=== PATIENT | male | born 1995 | race Caucasian/White ===

== ENCOUNTER 2019-10-23 13:07 | Emergency (ER) | payer BC ==
[~2019-10-23] VITALS: Ht 175 cm; Wt 67.3 kg
[~2019-10-23 13:07] MED LIST: FEXO30TA17 PO; LNS30CCR PO; ONDA-42 PO
[2019-10-23] MEDS ORDERED: NS IV 1000 ML 1,000 ML IV ONE (13:10)
--- OUTSIDE RECORDS SUMMARY | 2019-10-23 13:12 | XMS REPORT | Continuity of Care Document ---
Demographics Preferred Language Unknown Marital Status Unknown Restoration Affiliation Unknown Race Unknown Ethnic Group Unknown Author Organization Unknown Address Unknown Phone Unavailable Allergies Active Description Code Type Severity Reaction Onset Reported/Identified Relationship to Patient Clinical Status Yes No Known Drug Allergies [id number] Drug Allergy Unknown N/A 03/15/2010 Medications There is no data. Problems Date Dx Coded Attending Type Code Diagnosis Diagnosed By 03/15/2010 Ot 847.0 03/15/2010 Ot 959.09 03/15/2010 Ot E000.8 03/15/2010 Ot E029.9 03/15/2010 Ot E812.1 01/25/2011 Ot 787.01 DWAYNE SEA WITH VOMITING 01/25/2011 Ot E930.4 ADV EFF TETRACYCLINE 04/13/2014 Ot 959.19 04/13/2014 Ot E000.8 04/13/2014 Ot E008.1 04/13/2014 Ot E928.8 04/13/2014 Ot 959.19 04/13/2014 Ot E000.8 04/13/2014 Ot E008.1 04/13/2014 Ot E928.8 04/13/2014 Ot 816.01 04/13/2014 Ot E000.8 04/13/2014 Ot E008.4 04/13/2014 Ot E928.8 04/13/2014 Ot 816.01 04/13/2014 Ot E000.8 04/13/2014 Ot E008.4 04/13/2014 Ot E917.9 12/06/2015 Ot 816.01 FX MID/PRX PHAL, HAND-CL 12/06/2015 Ot E000.8 OTH ER EXTERNAL CAUSE STATUS 12/06/2015 Ot E008.4 ACT IVITIES INVOLVING MARTIAL ARTS 12/06/2015 Ot E917.9 STR UCK BY OBJ/PERSON NEC Procedures There is no data. Results There is no data. Encounters ACCT No. Visit Date/Time Discharge Status Pt. Type Provider Facility Loc./Unit Complaint [id number] 01/25/2011 01:54:00 Document Registration [id number] 08/08/2010 08:10:00 Document Registration [id number] 03/15/2010 20:25:00 Document Registration [id number] 12/10/2009 12:16:00 Document Registration [id number] 04/30/2009 12:16:00 Document Registration [id number] 04/30/2009 09:56:00 Document Registration
[2019-10-23] MEDS ORDERED: ONDANSETRON 4 MG/2 ML (SDV) Z0FRAN IVP ONE (13:15)
[2019-10-23 13:29] LABS: BASOPHILS # (AUTO) 0.1 10^3/uL (0.0-0.1); BASOPHILS % (AUTO) 1 % (0-10); EOSINOPHILS # (AUTO) 0.1 10^3/uL (0.0-0.3); EOSINOPHILS % (AUTO) 1 % (0-10); HEMATOCRIT 42 % (40-54); HEMOGLOBIN 14.6 G/DL (13.3-17.7); LYMPHOCYTES # (AUTO) 2.5 X 10^3 (1.0-4.0); LYMPHOCYTES % (AUTO) 29 % (12-44); MEAN CORPUSCULAR HEMOGLOBIN 30 PG (25-34); MEAN CORPUSCULAR HGB CONC 35 G/DL (32-36); MEAN CORPUSCULAR VOLUME 86 FL (80-99); MEAN PLATELET VOLUME 10.1 FL (7.4-10.4); MONOCYTES # (AUTO) 0.7 X 10^3 (0.0-1.0); MONOCYTES % (AUTO) 9 % (0-12); NEUTROPHILS # (AUTO) 5.2 X 10^3 (1.8-7.8); NEUTROPHILS % (AUTO) 61 % (42-75); PLATELET COUNT 319 10^3/uL (130-400); RED CELL DISTRIBUTION WIDTH 12.3 % (10.0-14.5); WHITE BLOOD COUNT 8.6 10^3/uL (4.3-11.0)
[2019-10-23] MEDS ORDERED: KETOROLAC 30 MG/ML VIAL IVP ONE (13:30)
[2019-10-23 13:39] LABS: ALBUMIN 4.9 GM/DL (3.2-4.5); CHLORIDE 103 MMOL/L (98-107); POTASSIUM 3.6 MMOL/L (3.6-5.0); SODIUM 141 MMOL/L (135-145)
[2019-10-23 13:41] LABS: CALCIUM 9.7 MG/DL (8.5-10.1)
[2019-10-23 13:42] LABS: GLUCOSE 115 MG/DL (70-105); TOTAL PROTEIN 7.5 GM/DL (6.4-8.2)
[2019-10-23 13:43] LABS: CARBON DIOXIDE 25 MMOL/L (21-32)
[2019-10-23 13:44] LABS: BILIRUBIN,TOTAL 0.8 MG/DL (0.1-1.0)
[2019-10-23 13:45] LABS: ALKALINE PHOSPHATASE 63 U/L (40-136); CREATININE SERUM 1.08 MG/DL (0.60-1.30); GFR ESTIMATED > 60
[2019-10-23 13:46] LABS: BUN/CREATININE RATIO 12
[2019-10-23 13:48] LABS: ALANINE AMINOTRANSFERASE 16 U/L (0-55)
[2019-10-23 14:40] LABS: BILIRUBIN,URINE NEGATIVE (NEGATIVE); CLARITY,URINE CLEAR; COLOR,URINE YELLOW; GLUCOSE, URINE (UA) NEGATIVE (NEGATIVE); KETONES,URINE 3+ (NEGATIVE); LEUKOCYTE ESTERASE ,URINE NEGATIVE (NEGATIVE); NITRITE,URINE NEGATIVE (NEGATIVE); PROTEIN,URINE 1+ (NEGATIVE)
[2019-10-23 14:47] LABS: BACTERIA,URINE NEGATIVE /HPF; CALCIUM OXALATE CRYSTALS,UR MODERATE /LPF
[2019-10-23 14:48] LABS: RBC,URINE RARE /HPF
[2019-10-23] MEDS ORDERED: LACTATED RINGERS 1,000 ML IV ONE (14:53)
--- NOTE | 2019-10-23 14:59 | ED Abdominal Pain ---
General Chief Complaint: Abdominal/GI Problems Stated Complaint: LOWER R BACK PAIN/VOMITING Nursing Triage Note: PT PRESENTS TO ED WITH COMPLAINTS OF R LOWER FLANK/BACK PAIN AND N/V STARTING APROX 2 HOURS AGO. PT ALSO REPORTS DIFFICULTY WITH URINATION STARTING 2 HOURS AGO. Sepsis Screen: No Definite Risk Source of Information: Patient Exam Limitations: No Limitations History of Present Illness Date Seen by Provider: October 23, 2019 Time Seen by Provider: 13:11 Initial Comments This 24-year-old young man presents to the emergency room with abrupt onset of right flank pain and vomiting that started around noon. He denies any fever or other acute symptoms. He is able to produce a tiny amount of dark urine in the exam room. Allergies and Home Medications Allergies Coded Allergies: No Known Drug Allergies (Unverified , 03/15/10) Home Medications Fexofenadine Hcl 30 Mg Tablet, 1 TAB PO DAILY, (Reported) Lansoprazole 30 Mg Cap, 30 MG PO DAILY, (Reported) Ondansetron 4 Mg Tab.rapdis, 4 MG SL Q4H PRN for NAUSEA/VOMITING Prescribed by: NEIL PURCELL on 10/23/19 1608 Ondansetron Hcl 4 Mg Tab, 4 MG PO Q4H PRN Prescribed by: JAZMIN BERRY on 01/25/11 0313 Patient Home Medication List Home Medication List Reviewed: Yes Review of Systems Review of Systems Constitutional: no symptoms reported EENTM: No Symptoms Reported Respiratory: No Symptoms Reported Cardiovascular: No Symptoms Reported Gastrointestinal: See HPI Genitourinary: See HPI Musculoskeletal: no symptoms reported Skin: no symptoms reported Psychiatric/Neurological: No Symptoms Reported Endocrine: No Symptoms Reported Hematologic/Lymphatic: No Symptoms Reported Past Hlykbov-Qzqqna-Alkmdl Hx Past Med/Social Hx: Reviewed Nursing Past Med/Soc Hx Patient Social History Alcohol Use: Denies Use Recreational Drug Use: No Smoking Status: Never a Smoker Recent Foreign Travel: No Contact w/Someone Who Travel: No Recent Infectious Disease Expo: No Recent Hopitalizations: No Physical Abuse: No Sexual Abuse: No Mistreated: No Fear: No Seasonal Allergies Seasonal Allergies: No Past Medical History Surgeries: Yes (THAI FUNDOPLICATION) Respiratory: No Cardiac: No Neurological: No Genitourinary: No Gastrointestinal: No Musculoskeletal: No Endocrine: No HEENT: No Cancer: No Psychosocial: No Integumentary: No Blood Disorders: No Physical Exam Vital Signs Vital Signs - First Documented 10/23/19 13:22 Temp 36.3 Pulse 62 Resp 18 B/P (MAP) 135/95 (108) Pulse Ox 100 Capillary Refill : Less Than 3 Seconds Height/Weight/BMI Height: '" Weight: lbs. oz. kg; 21.00 BMI Method:Stated General Appearance: WD/WN, moderate distress HEENT: normal ENT inspection Neck: normal inspection Respiratory: lungs clear, normal breath sounds, no respiratory distress Cardiovascular: regular rate, rhythm, no edema, no murmur Gastrointestinal: normal bowel sounds, non tender, soft Extremities: normal inspection, no pedal edema Neurologic/Psychiatric: driller hand II-XII nml as tested, no motor/sensory deficits, alert, normal mood/affect, oriented x 3 Skin: normal color, warm/dry Progress/Results/Core Measures Results/Orders Lab Results Laboratory Tests Test 10/23/19 13:10 10/23/19 13:18 Range/Units Urine Color YELLOW Urine Clarity CLEAR Urine pH 6.0 5-9 Urine Specific [place] >=1.030 1.016-1.022 Urine Protein 1+ H NEGATIVE Urine Glucose (UA) NEGATIVE NEGATIVE Urine Ketones 3+ H NEGATIVE Urine Nitrite NEGATIVE NEGATIVE Urine Bilirubin NEGATIVE NEGATIVE Urine Urobilinogen 1.0 < = 1.0 MG/DL Urine Leukocyte Esterase NEGATIVE NEGATIVE Urine RBC (Auto) 1+ H NEGATIVE Urine RBC RARE /HPF Urine WBC NONE /HPF Urine Squamous Epithelial Cells NONE /HPF Urine Crystals PRESENT H /LPF Urine Calcium Oxalate Crystals MODERATE H /LPF Urine Bacteria NEGATIVE /HPF Urine Casts NONE /LPF Urine Mucus SMALL H /LPF Urine Culture Indicated NO White Blood Count 8.6 4.3-11.0 10^3/uL Red Blood Count 4.91 4.35-5.85 10^6/uL Hemoglobin 14.6 13.3-17.7 G/DL Hematocrit 42 40-54 % Mean Corpuscular Volume 86 80-99 FL Mean Corpuscular Hemoglobin 30 25-34 PG Mean Corpuscular Hemoglobin Concent 35 32-36 G/DL Red Cell Distribution Width 12.3 10.0-14.5 % Platelet Count 319 130-400 10^3/uL Mean Platelet Volume 10.1 7.4-10.4 FL Neutrophils (%) (Auto) 61 42-75 % Lymphocytes (%) (Auto) 29 12-44 % Monocytes (%) (Auto) 9 0-12 % Eosinophils (%) (Auto) 1 0-10 % Basophils (%) (Auto) 1 0-10 % Neutrophils # (Auto) 5.2 1.8-7.8 X 10^3 Lymphocytes # (Auto) 2.5 1.0-4.0 X 10^3 Monocytes # (Auto) 0.7 0.0-1.0 X 10^3 Eosinophils # (Auto) 0.1 0.0-0.3 10^3/uL Basophils # (Auto) 0.1 0.0-0.1 10^3/uL Sodium Level 141 135-145 MMOL/L Potassium Level 3.6 3.6-5.0 MMOL/L Chloride Level 103 98-107 MMOL/L Carbon Dioxide Level 25 21-32 MMOL/L Anion Gap 13 5-14 MMOL/L Blood Urea Nitrogen 13 7-18 MG/DL Creatinine 1.08 0.60-1.30 MG/DL Estimat Glomerular Filtration Rate > 60 BUN/Creatinine Ratio 12 Glucose Level 115 H 70-105 MG/DL Calcium Level 9.7 8.5-10.1 MG/DL Corrected Calcium 8.5-10.1 MG/DL Total Bilirubin 0.8 0.1-1.0 MG/DL Aspartate Amino Transf (AST/SGOT) 15 5-34 U/L Alanine Aminotransferase (ALT/SGPT) 16 0-55 U/L Alkaline Phosphatase 63 40-136 U/L Total Protein 7.5 6.4-8.2 GM/DL Albumin 4.9 H 3.2-4.5 GM/DL My Orders Orders - NEIL EDDY MD Cbc With Automated Diff (10/23/19 13:10) Comprehensive Metabolic Panel (10/23/19 13:10) Ua Culture If Indicated (10/23/19 13:10) Ed Iv/Invasive Line Start (10/23/19 13:10) Ns Iv 1000 Ml (Sodium Chloride 0.9%) (10/23/19 13:10) Ondansetron Injection (Zofran Injectio (10/23/19 13:15) Ketorolac Injection (Toradol Injection) (10/23/19 13:30) Fentanyl Injection (Sublimaze Injection (10/23/19 15:00) Lactated Ringers (Lr 1000 Ml Iv Solution (10/23/19 14:53) Ct Abd/Pelvis Wo(Kidney Stone) (10/23/19 14:59) Medications Given in ED Current Medications Medications Dose Ordered Sig/Juan Daniel Route Start Time Stop Time Status Last Admin Dose Admin Fentanyl Citrate 50 mcg ONCE ONCE IVP 10/23/19 15:00 10/23/19 15:01 DC 10/23/19 15:01 50 MCG Ketorolac Tromethamine 15 mg ONCE ONCE IVP 10/23/19 13:30 10/23/19 13:31 DC 10/23/19 13:39 15 MG Lactated Ringer's 1,000 ml @ 0 mls/hr Q0M ONCE IV 10/23/19 14:53 10/23/19 14:54 DC 10/23/19 15:15 0 MLS/HR Ondansetron HCl 8 mg ONCE ONCE IVP 10/23/19 13:15 10/23/19 13:16 DC 10/23/19 13:39 8 MG Sodium Chloride 1,000 ml @ 0 mls/hr Q0M ONCE IV 10/23/19 13:10 10/23/19 13:12 DC 10/23/19 13:39 0 MLS/HR Vital Signs/I&O 10/23/19 10/23/19 13:22 16:27 Temp 36.3 36.3 Pulse 62 60 Resp 18 18 B/P (MAP) 135/95 (108) 130/89 (108) Pulse Ox 100 100 Blood Pressure Mean: 108 Progress Progress Note : Time: 15:01 Progress Note Patient presented in significant acute pain and was vomiting violently in the trash can during my initial assessment. He was initially treated with Toradol and Zofran with good improvement. A liter of IV fluid was infused. He states his pain is now rebounding. Fentanyl was ordered for additional pain relief. Discussed the risks and benefits of CT for stone search. Risks included cost and radiation exposure. Patient elects to proceed with CT scan. Diagnostic Imaging Diagonstic Imaging: CT Plain Films/CT/US/NM/MRI: abdomen, pelvis Comments CT abdomen and pelvis viewed by me and report reviewed. See report below: NAME: NICOLASSTEPHANIA ACEVEDOYeimy Sherman [facility] REC#: [id number] PT STATUS: REG ER : 1995 PHYSICIAN: NEIL EDDY MD ADMIT DATE: 10/23/19/ER Signed Date of Exam:10/23/19 CT ABD/PELVIS WO(KIDNEY STONE) EXAMINATION: CT abdomen and pelvis without contrast. TECHNIQUE: Multiple contiguous axial images were obtained through the abdomen and pelvis without the use of intravenous contrast. All CT scans use one or more of the following dose optimizing techniques: automated exposure control, MA and/or KvP adjustment based on patient size and exam type or iterative reconstruction. HISTORY: Right flank pain. COMPARISON: None available. FINDINGS: Limited views of the lower thorax are unremarkable. The liver is normal without focal lesion. There is no biliary ductal dilation. Gallbladder is normal. Pancreas is normal. Spleen is normal. Adrenal glands are normal. The kidneys are normal. There is no hydronephrosis. Urinary bladder is normal. There are no renal or ureteral calculi. Visualized bowel is normal in caliber without obstruction or inflammation. The appendix is normal. It measures less than 5 mm and contains gas. No free fluid or air. No abdominal or pelvic lymphadenopathy. Aorta is normal in caliber without aneurysm. There are no suspicious osseus lesions. IMPRESSION: No acute abnormality in the abdomen or pelvis. No renal or ureteral stone. Dictated by: Dictated on workstation # [id number] Dict: 10/23/19 1525 Trans: 10/23/19 1544 [facility] [id number] Interpreted by: ANTONETTE MELGAR MD Electronically signed by: ANTONETTE MELGAR MD 10/23/19 1544 Departure Impression Primary Impression: Right flank pain Additional Impression: Nausea and vomiting Qualified Codes: R11.2 - Nausea with vomiting, unspecified Disposition: 01 HOME, SELF-CARE Condition: Improved Departure-Patient Inst. Decision time for Depature: 16:05 Referrals: UNKNOWN (PCP/Family) Primary Care Physician Patient Instructions: Kidney Stones in Adults Add. Discharge Instructions: The exact cause of your symptoms is uncertain but may have been due to a kidney stone that passed. Drink plenty of clear liquids. If you have rebound pain you may take ibuprofen up to 600 mg every 6 hours and Tylenol (acetaminophen) up to 1000 mg every 6 hours as needed. Uses Zofran (ondansetron) as prescribed for nausea and vomiting. If you have uncontrolled symptoms or develop new symptoms such as fever, return to care. All discharge instructions reviewed with patient and/or family. Voiced understanding. Scripts Ondansetron (Ondansetron Odt) 4 Mg Tab.rapdis 4 MG SL Q4H PRN for NAUSEA/VOMITING, #10 TAB Prov: NEIL EDDY MD 10/23/19 Copy Copies To 1: PRESTON HAMEED MD, JOSHUA T MD October 23, 2019 14:59
[2019-10-23] MEDS ORDERED: fentaNYL INJECTION 100 MCG/2 ML AMP IVP ONE (15:00)
--- NOTE | 2019-10-23 15:42 | Diagnostic Imaging Report ---
EXAMINATION: CT abdomen and pelvis without contrast. TECHNIQUE: Multiple contiguous axial images were obtained through the abdomen and pelvis without the use of intravenous contrast. All CT scans use one or more of the following dose optimizing techniques: automated exposure control, MA and/or KvP adjustment based on patient size and exam type or iterative reconstruction. HISTORY: Right flank pain. COMPARISON: None available. FINDINGS: Limited views of the lower thorax are unremarkable. The liver is normal without focal lesion. There is no biliary ductal dilation. Gallbladder is normal. Pancreas is normal. Spleen is normal. Adrenal glands are normal. The kidneys are normal. There is no hydronephrosis. Urinary bladder is normal. There are no renal or ureteral calculi. Visualized bowel is normal in caliber without obstruction or inflammation. The appendix is normal. It measures less than 5 mm and contains gas. No free fluid or air. No abdominal or pelvic lymphadenopathy. Aorta is normal in caliber without aneurysm. There are no suspicious osseus lesions. IMPRESSION: No acute abnormality in the abdomen or pelvis. No renal or ureteral stone. Dictated by: Dictated on workstation # [id number]
[2019-10-23] MEDS ORDERED: ONDA4TAB11 SL (16:08)
[2019-10-23 16:27] VITALS: BP 130/89
== END 2019-10-23 16:27 | disposition home or self-care (01) ==
LOC: EDUNIT# 13:07 → ER 13:08
DX: R10.9 Unspecified abdominal pain (principal); R11.2 Nausea with vomiting, unspecified
CPT/HCPCS: 36415; 74176; 80053; 81000; 85025; 96361; 96374; 96375